=== PATIENT | female | born 2000 | race American Indian/Alaskan Native ===

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

== ENCOUNTER 2019-10-02 08:33 | Emergency (ER) | payer MEDICAID, OTHER ==
[2019-10-02 08:37] VITALS: BP 139/87
== END 2019-10-02 14:52 | disposition left against medical advice (07) ==
LOC: ED 08:33
DX: L02.426 Furuncle of left lower limb (principal); Z53.21 Procedure and treatment not carried out due to patient leaving prior to being seen by health care provider